=== PATIENT | male | born 1990 | race American Indian/Alaskan Native ===

== ENCOUNTER 2020-12-09 06:40 | Emergency (ER) | payer SELFPAY ==
[2020-12-09 06:55] VITALS: BP 120/78
[2020-12-09] MEDS ORDERED: IBUPROFEN 800 MG TAB PO ONE (06:55)
--- NOTE | 2020-12-09 08:22 | XRay Report ---
RIGHT FOOT 3 VIEWS INDICATION: foot pain. Red and swollen area between fourth and fifth toes COMPARISON: None. IMPRESSION: No acute osseous or soft tissue abnormality. No significant DJD. No obvious abnormali ty identified between the fourth and fifth toes. Signer Name: Sam Lawrence Jr, MD Signed: 12/09/2020 8:18 AM Workstation Name: [id number]
--- NOTE | 2020-12-09 08:57 | Emergency Department Report ---
ED General Adult HPI - General Chief complaint: Extremity Injury, Lower Stated complaint: RIGHT FOOT SWOLLEN Time Seen by Provider: 12/09/20 08:31 Source: patient Mode of arrival: Ambulatory Limitations: No Limitations - History of Present Illness Initial comments: 29-year-old -[place] male patient presents with complaints of right toe pain and swelling x3 days. He denies any injury, fever/chills/sweats, or difficulty moving his limbs. Patient rates his pain as a 9/10 in severity. He denies trying any OTC medication for symptoms. He states history of infection similar to this in the same area 5 months ago, however he did not the medications prescribed. Severity scale (0 -10): 9 - Related Data Previous Rx's Medication Instructions Recorded Last Taken Type Sulfamethoxazole/Trimethoprim 1 each PO BID 10 Days #20 tablet 12/09/20 Unknown Rx [Bactrim DS TAB] Terbinafine [LamiSIL At 1%] 1 applicatio TP BID 14 Days #1 tube 12/09/20 Unknown Rx Allergies Allergy/AdvReac Type Severity Reaction Status Date / Time No Known Allergies Allergy Unverified 12/09/20 06:53 ED Review of Systems ROS: Stated complaint: RIGHT FOOT SWOLLEN Other details as noted in HPI Constitutional: denies: chills, diaphoresis, fever, malaise, weakness Musculoskeletal: joint swelling, arthralgia Skin: change in color. denies: pruritus ED Past Medical Hx - Past Medical History Previous Medical History?: No - Surgical History Past Surgical History?: No - Social History Smoking Status: Current Every Day Smoker - Medications Home Medications: Home Medications Medication Instructions Recorded Confirmed Last Taken Type Sulfamethoxazole/Trimethoprim 1 each PO BID 10 Days #20 tablet 12/09/20 Unknown Rx [Bactrim DS TAB] Terbinafine [LamiSIL At 1%] 1 applicatio TP BID 14 Days #1 tube 12/09/20 Unknown Rx ED Physical Exam - General Limitations: No Limitations General appearance: alert, in no apparent distress - Head Head exam: Present: atraumatic, normocephalic - Eye Eye exam: Present: normal appearance - Respiratory Respiratory exam: Absent: respiratory distress - Neurological Exam Neurological exam: Present: alert, oriented X3 - Psychiatric Psychiatric exam: Present: normal affect, normal mood - Skin Skin exam: Present: warm, dry, normal color, other (Erythema with tenderness to palpation noted to the with space of the right fourth/fifth toe with laceration and erythema noted). Absent: rash ED Course Vital Signs 12/09/20 06:54 Temperature 97.7 F Pulse Rate 80 Respiratory 16 Rate Blood Pressure 120/78 O2 Sat by Pulse 98 Oximetry ED Medical Decision Making - Radiology Data Radiology results: report reviewed RIGHT FOOT 3 VIEWS INDICATION: foot pain. Red and swollen area between fourth and fifth toes COMPARISON: None. IMPRESSION: No acute osseous or soft tissue abnormality. No significant DJD. No obvious abnormality identified between the fourth and fifth toes. - Medical Decision Making 29-year-old -[place] male patient presents with complaints of right toe pain and swelling x3 days. He denies any injury, fever/chills/sweats, or difficulty moving his limbs. Patient rates his pain as a 9/10 in severity. He denies trying any OTC medication for symptoms. He states history of infection similar to this in the same area 5 months ago, however he did not the medications prescribed. X-ray of the foot is normal. On exam, patient appears to have a fungal infecti on with secondary bacterial infection. Will treat with terbinafine and Bactrim. Recommend follow-up with primary care in 3 to 5 days. Return precautions discussed in detail with patient who verbalizes understanding. Critical care attestation.: If time is entered above; I have spent that time in minutes in the direct care of this critically ill patient, excluding procedure time. ED Disposition Clinical Impression: Tinea pedis, Bacterial skin infection Disposition: - TO HOME OR SELFCARE Is pt being admited?: No Condition: Stable Instructions: Athlete's Foot, Cellulitis, Adult Prescriptions: Sulfamethoxazole/Trimethoprim [Bactrim DS TAB] 1 each PO BID 10 Days #20 tablet Terbinafine [LamiSIL At 1%] 1 applicatio TP BID 14 Days #1 tube Referrals: [facility] [Provider Group] - 3-5 Days Forms: Work/School Release Form(ED)
== END 2020-12-09 09:20 | disposition home or self-care (01) ==
LOC: ED 06:40
DX: B35.3 Tinea pedis (principal); L08.9 Local infection of the skin and subcutaneous tissue, unspecified; F17.200 Nicotine dependence, unspecified, uncomplicated; Z79.899 Other long term (current) drug therapy
CPT/HCPCS: 82962